=== PATIENT | female | born 2000 | race Caucasian/White ===

== ENCOUNTER 2019-09-24 10:08 | Emergency (ER) | payer BC ==
[2019-09-24] MEDS ORDERED: Lidocaine 1% w/Epinephrine 1:100K 20 ML VIAL ONE (10:39)
[2019-09-24] MEDS ORDERED: Bacitracin 1 PK ONE (11:11)
[2019-09-24] MEDS ORDERED: SODIUM CHLORIDE ONE (13:31)
== END 2019-09-24 11:23 | disposition home or self-care (01) ==
LOC: MADERS 10:08
DX: S61.412A Laceration without foreign body of left hand, initial encounter (principal); W26.0XXA Contact with knife, initial encounter
CPT/HCPCS: 12001

== ENCOUNTER 2019-10-01 10:39 | Emergency (ER) | payer BC | END 2019-10-01 11:00 | disposition home or self-care (01) | LOC: MADERS 10:39 | DX: S61.412D Laceration without foreign body of left hand, subsequent encounter (principal); X58.XXXD Exposure to other specified factors, subsequent encounter ==